=== PATIENT | male | born 1995 | race Caucasian/White ===

== ENCOUNTER 2018-03-19 10:10 | Emergency (ER) | payer MEDICAID, OTHER ==
[2018-03-19 10:10] VITALS: BMI 25.1
[2018-03-19 10:25] VITALS: BP 130/72; PULSE 88; RESP 18; TEMP 98.8; O2SAT 99
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
[2018-03-19] MEDS ORDERED: Tdap Vaccine 0.5 ml Vial (10-64 yrs) IM ONE ×2 (10:46→10:51)
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
== END 2018-03-19 11:09 | disposition home or self-care (01) ==
LOC: C.ER 10:10
DX: S20.212A Contusion of left front wall of thorax, initial encounter (principal); S10.91XA Abrasion of unspecified part of neck, initial encounter; V89.2XXA Person injured in unspecified motor-vehicle accident, traffic, initial encounter